=== PATIENT | male | born 1980 | race Caucasian/White ===

== ENCOUNTER 2018-11-24 14:27 | Emergency (ER) | payer OTHER ==
[~2018-11-24] VITALS: Ht 187.9 cm; Wt 113.4 kg
[2018-11-24] MEDS ORDERED: BENADRYL ALLERG25 M5 PO (14:52)
[2018-11-24] MEDS ORDERED: DELTASONE20 M1 PO (14:52)
[2018-11-24] MEDS ORDERED: EPIPEN 2-P0.3 MG/0.3 IJ (14:59)
== END 2018-11-24 15:34 | disposition home or self-care (01) ==
LOC: ED 14:27
DX: T63.441A Toxic effect of venom of bees, accidental (unintentional), initial encounter (principal); M79.89 Other specified soft tissue disorders; Z88.1 Allergy status to other antibiotic agents; Y92.89 Other specified places as the place of occurrence of the external cause

== ENCOUNTER 2019-07-01 17:47 | Emergency (ER) | payer OTHER ==
[~2019-07-01] VITALS: Ht 187.9 cm; Wt 107.0 kg
[~2019-07-01 17:47] MED LIST: BENADRYL ALLERG25 M5 PO; DELTASONE20 M1 PO; EPIPEN 2-P0.3 MG/0.3 IJ
[2019-07-01 18:39] LABS: BASO % 0.3 % (0.0-1.0); HEMATOCRIT 40.2 % (42.0-52.0); HEMOGLOBIN 14.2 g/dl (14.0-18.0); LYMPH # 1.2 10*3/uL (1.3-4.4); LYMPH % 30.7 % (27.0-41.0); MEAN CELL VOLUME 99.3 fl (80.0-94.0); MEAN CORPUSCULAR HGB 35.1 pg (27.0-31.0); MEAN CORPUSCULAR HGB CONC 35.3 g/dl (33.0-37.0); MEAN PLATELET VOLUME 10.9 fl (9.6-12.3); MONO # 0.3 10*3/uL (0.1-1.0); MONO % 8.8 % (3.0-9.0); NEUT # 2.3 10*3/uL (2.3-7.9); NEUT % 58.9 % (47.0-73.0); PLATELET COUNT AUTOMATED 72 10*3/uL (130-400); RED BLOOD COUNT 4.05 10*6/uL (4.50-5.90); RED CELL DISTRI WIDTH 12.8 % (0-14.5); WHITE BLOOD COUNT 3.9 10*3/uL (4.8-10.8)
[2019-07-01 18:52] LABS: ALBUMIN 3.6 gm/dl (3.1-4.5); ALKALINE PHOSPHATASE 69 U/L (45-117); BUN 7 mg/dl (7-24); CHLORIDE 105 mmol/L (98-107); CREATININE 0.89 mg/dL (0.70-1.30); LIPASE 74 U/L (73-393); POTASSIUM 3.3 mmol/L (3.5-5.1); SGOT/AST 18 IU/L (3-35); SGPT/ALT 26 U/L (12-78); SODIUM 138 mmol/L (136-145); TOTAL PROTEIN 7.6 gm/dL (6.4-8.2); TROPONIN I < 0.015 ng/ml (<0.045)
[2019-07-01 18:53] LABS: ACT PARTIAL THROMBO TIME 41.9 SECONDS (20.0-32.1)
== END 2019-07-01 20:55 | disposition short-term general hospital (02) ==
LOC: ED 17:47
PROVIDERS: Emergency Medicine
DX: I63.9 Cerebral infarction, unspecified (principal); F17.200 Nicotine dependence, unspecified, uncomplicated; Z88.1 Allergy status to other antibiotic agents; Z79.899 Other long term (current) drug therapy

== ENCOUNTER 2019-08-27 22:25 | Emergency (ER) | payer OTHER ==
[~2019-08-27] VITALS: Ht 182.8 cm; Wt 108.9 kg
[2019-08-27 22:55] LABS: HEMATOCRIT 49.8 % (42.0-52.0); MEAN CELL VOLUME 107.6 fl (80.0-94.0); MEAN CORPUSCULAR HGB 34.8 pg (27.0-31.0); MEAN CORPUSCULAR HGB CONC 32.3 g/dl (33.0-37.0); MEAN PLATELET VOLUME 10.5 fl (9.6-12.3); PLATELET COUNT AUTOMATED 151 10*3/uL (130-400); RED BLOOD COUNT 4.63 10*6/uL (4.50-5.90); RED CELL DISTRI WIDTH 13.5 % (0-14.5); WHITE BLOOD COUNT 15.1 10*3/uL (4.8-10.8)
[2019-08-27 23:14] LABS: ALBUMIN 4.5 gm/dl (3.1-4.5); ALKALINE PHOSPHATASE 96 U/L (45-117); BUN 12 mg/dl (7-24); CHLORIDE 105 mmol/L (98-107); CKMB < 1.0 ng/ml (0.5-3.6); CREATININE 1.42 mg/dL (0.70-1.30); ETHYL ALCOHOL < 3.0 mg/dl (<3); POTASSIUM 3.6 mmol/L (3.5-5.1); SGOT/AST 40 IU/L (3-35); SGPT/ALT 47 U/L (12-78); SODIUM 140 mmol/L (136-145); TOTAL PROTEIN 9.3 gm/dL (6.4-8.2); TROPONIN I 0.043 ng/ml (<0.045)
[2019-08-27 23:19] LABS: PLATELET SUFFICIENCY NORMAL (NORMAL); TOTAL CELLS COUNTED 100 #CELLS
[2019-08-27 23:40] LABS: URINE AMPHETAMINES < 1000 (1000ng/ml); URINE BARBITURATES < 200 (200ng/ml); URINE BENZODIAZEPINES > 200 (200ng/ml); URINE CANNABINOIDS (THC) < 50 (50ng/ml); URINE COCAINE < 300 (300ng/ml); URINE METHADONE < 300 (300ng/ml); URINE OPIATES < 300 (300ng/ml)
[2019-08-27 23:43] LABS: URINE PHENCYCLIDINE < 25 (25ng/ml)
[2019-08-27 23:45] LABS: BILIRUBIN NEGATIVE (NEGATIVE); BLOOD 3+ (NEGATIVE); CLARITY CLEAR (CLEAR); COLOR YELLOW (YELLOW); GLUCOSE NEGATIVE (NEGATIVE); KETONE NEGATIVE (NEGATIVE); LEUKO ESTERASE NEGATIVE (NEGATIVE); NITRITE NEGATIVE (NEGATIVE); UROBILINOGEN 0.2 E.U./dl (0.2-1.0)
[2019-08-27 23:46] LABS: BACTERIA TRACE
== END 2019-08-28 02:17 | disposition short-term general hospital (02) ==
LOC: ED 22:25
PROVIDERS: Family Medicine
DX: G40.801 Other epilepsy, not intractable, with status epilepticus (principal); F17.200 Nicotine dependence, unspecified, uncomplicated; Z88.8 Allergy status to other drugs, medicaments and biological substances; Z79.899 Other long term (current) drug therapy

== ENCOUNTER 2021-09-19 15:47 | Inpatient (IN) | payer OTHER ==
[2021-09-19] VITALS (8 sets, daily range): BP systolic 145–178; BP diastolic 104–126
[~2021-09-19] VITALS: Ht 188 cm; Wt 93.0 kg
[2021-09-19 16:26] LABS: BASO % 0.2 % (0.0-1.0); EOS # 0.1 10*3/uL (0.0-0.4); HEMATOCRIT 38.4 % (42.0-52.0); LYMPH % 16.3 % (27.0-41.0); MEAN CELL VOLUME 92.8 fl (80.0-94.0); MEAN CORPUSCULAR HGB 33.1 pg (27.0-31.0); MEAN CORPUSCULAR HGB CONC 35.7 g/dl (33.0-37.0); MEAN PLATELET VOLUME 10.9 fl (9.6-12.3); MONO # 0.3 10*3/uL (0.1-1.0); MONO % 4.9 % (3.0-9.0); NEUT # 4.7 10*3/uL (2.3-7.9); NEUT % 77.3 % (47.0-73.0); PLATELET COUNT AUTOMATED 66 10*3/uL (130-400); RED BLOOD COUNT 4.14 10*6/uL (4.50-5.90); RED CELL DISTRI WIDTH 13.3 % (0-14.5); WHITE BLOOD COUNT 6.1 10*3/uL (4.8-10.8)
[2021-09-19 16:39] LABS: ALKALINE PHOSPHATASE 69 U/L (45-117); BUN 21 mg/dl (7-24); CHLORIDE 106 mmol/L (98-107); CREATININE 1.02 mg/dL (0.70-1.30); POTASSIUM 3.8 mmol/L (3.5-5.1); SGOT/AST 15 IU/L (3-35); SGPT/ALT 23 U/L (12-78); SODIUM 137 mmol/L (136-145); TOTAL PROTEIN 7.4 gm/dL (6.4-8.2)
[2021-09-19 19:04] LABS: BILIRUBIN Negative (Negative); BLOOD Negative (Negative); CLARITY Clear (Clear); COLOR Dark Yellow (Yellow); GLUCOSE Negative (Negative); KETONE Trace (Negative); LEUKO ESTERASE Trace (Negative); NITRITE Negative (Negative); SPECIFIC GRAVITY 1.025 (1.001-1.030)
[2021-09-19 19:18] LABS: BACTERIA TRACE
[2021-09-19] MEDS ORDERED: ASPIRIN ADULT L81 M2 PO (22:31)
[2021-09-19] MEDS ORDERED: LIPITOR80 MG PO (22:32)
[2021-09-19] MEDS ORDERED: FLUOXETINE40 MG PO (22:33)
[2021-09-19] MEDS ORDERED: ELIQUIS5 M1 PO (22:33)
[2021-09-19] MEDS ORDERED: NATURE'S BLEND F1 MG PO (22:34)
[2021-09-19] MEDS ORDERED: GABAPENTIN100 M2 PO (22:35)
[2021-09-19] MEDS ORDERED: APRESOLINE25 MG PO (22:35)
[2021-09-19] MEDS ORDERED: KEPPRA500 MG PO (22:36)
[2021-09-19] MEDS ORDERED: ZESTRIL20 MG PO (22:37)
[2021-09-19] MEDS ORDERED: MULTIPLE VITAM1 EAC2 PO (22:38)
[2021-09-19] MEDS ORDERED: NIFEDIPINE ER60 M1 PO (22:38)
[2021-09-20] VITALS: BP 153/87
[2021-09-20 05:32] LABS: BUN 18 mg/dl (7-24); CHLORIDE 106 mmol/L (98-107); CHOLESTEROL 144 mg/dL (<200); CREATININE 0.91 mg/dL (0.70-1.30); POTASSIUM 3.8 mmol/L (3.5-5.1); SGOT/AST 14 IU/L (3-35); SGPT/ALT 21 U/L (12-78); SODIUM 138 mmol/L (136-145); TRIGLYCERIDES 159 mg/dl (<150)
[2021-09-20 05:33] LABS: ALKALINE PHOSPHATASE 63 U/L (45-117); CPK 30 U/L (39-308); LDL CHOLESTEROL 83 mg/dL (9-159); TOTAL PROTEIN 6.8 gm/dL (6.4-8.2)
[2021-09-20 05:45] LABS: FREE T4 0.78 ng/dl (0.76-1.46)
[2021-09-20 06:09] LABS: HEMATOCRIT 36.1 % (42.0-52.0); MEAN CORPUSCULAR HGB 32.9 pg (27.0-31.0); MEAN CORPUSCULAR HGB CONC 34.6 g/dl (33.0-37.0); PLATELET COUNT AUTOMATED 69 10*3/uL (130-400); RED CELL DISTRI WIDTH 13.6 % (0-14.5); WHITE BLOOD COUNT 3.9 10*3/uL (4.8-10.8)
[2021-09-20 06:15] LABS: ACT PARTIAL THROMBO TIME 39.5 SECONDS (20.0-32.1)
[2021-09-20 06:19] LABS: MANUAL DIFF REFLEX YES
[2021-09-20 06:56] LABS: PLATELET SUFFICIENCY NORMAL (NORMAL); TOTAL CELLS COUNTED 100 #CELLS
[2021-09-20 08:00] VITALS: BP 134/72
[2021-09-20 12:00] VITALS: BP 125/77
[2021-09-20 16:00] VITALS: BP 122/70
[2021-09-20 20:00] VITALS: BP 123/82
[2021-09-21] VITALS: BP 136/88
[2021-09-21 05:13] LABS: BUN 22 mg/dl (7-24); CHLORIDE 106 mmol/L (98-107); POTASSIUM 4.1 mmol/L (3.5-5.1); SODIUM 137 mmol/L (136-145)
[2021-09-21 06:13] LABS: BASO % 0.6 % (0.0-1.0); EOS # 0.1 10*3/uL (0.0-0.4); EOS % 2.4 % (1.0-4.0); HEMATOCRIT 37.1 % (42.0-52.0); LYMPH # 1.7 10*3/uL (1.3-4.4); LYMPH % 35.5 % (27.0-41.0); MEAN CELL VOLUME 96.1 fl (80.0-94.0); MEAN CORPUSCULAR HGB 33.7 pg (27.0-31.0); MEAN PLATELET VOLUME 10.8 fl (9.6-12.3); MONO # 0.2 10*3/uL (0.1-1.0); MONO % 4.9 % (3.0-9.0); NEUT # 2.6 10*3/uL (2.3-7.9); NEUT % 56.4 % (47.0-73.0); PLATELET COUNT AUTOMATED 87 10*3/uL (130-400); RED BLOOD COUNT 3.86 10*6/uL (4.50-5.90); RED CELL DISTRI WIDTH 13.5 % (0-14.5); WHITE BLOOD COUNT 4.7 10*3/uL (4.8-10.8)
[2021-09-21 08:00] VITALS: BP 133/90
[2021-09-21 12:00] VITALS: BP 128/83
[2021-09-21 16:00] VITALS: BP 103/54; BP 162/86
[2021-09-21 20:00] VITALS: BP 101/60
[2021-09-22] VITALS: BP 93/52
[2021-09-22 05:06] LABS: BUN 27 mg/dl (7-24); CHLORIDE 108 mmol/L (98-107); CREATININE 1.09 mg/dL (0.70-1.30); POTASSIUM 3.6 mmol/L (3.5-5.1); SODIUM 138 mmol/L (136-145)
[2021-09-22 05:18] VITALS: BP 94/65
[2021-09-22 06:26] LABS: BASO % 0.6 % (0.0-1.0); EOS # 0.1 10*3/uL (0.0-0.4); EOS % 1.8 % (1.0-4.0); HEMATOCRIT 36.6 % (42.0-52.0); LYMPH # 1.6 10*3/uL (1.3-4.4); MEAN CELL VOLUME 95.1 fl (80.0-94.0); MEAN CORPUSCULAR HGB 33.2 pg (27.0-31.0); MEAN PLATELET VOLUME 11.1 fl (9.6-12.3); MONO # 0.3 10*3/uL (0.1-1.0); MONO % 5.3 % (3.0-9.0); NEUT % 60.1 % (47.0-73.0); PLATELET COUNT AUTOMATED 92 10*3/uL (130-400); RED BLOOD COUNT 3.85 10*6/uL (4.50-5.90); RED CELL DISTRI WIDTH 13.4 % (0-14.5); WHITE BLOOD COUNT 5.1 10*3/uL (4.8-10.8)
[2021-09-22 08:00] VITALS: BP 125/83
[2021-09-22 12:00] VITALS: BP 92/57
[2021-09-22] MEDS ORDERED: ASPIRIN ADULT L81 M2 PO (14:35)
[2021-09-22] MEDS ORDERED: ZESTRIL20 MG PO (14:35)
[2021-09-22] MEDS ORDERED: ELIQUIS5 M1 PO (14:35)
[2021-09-22] MEDS ORDERED: APRESOLINE25 MG PO (14:35)
[2021-09-22] MEDS ORDERED: NIFEDIPINE ER60 M1 PO (14:35)
[2021-09-22 16:00] VITALS: BP 125/83
[2021-09-22] MEDS ORDERED: B12 ACTIVE1000 MCG PO (16:58)
== END 2021-09-22 18:54 | disposition home or self-care (01) | DRG 45 ==
LOC: ED 15:47 → EDHOLD 17:22 → 4E 17:22
PROVIDERS: Internal Medicine; Student in an Organized Health Care Education/Training Program; ADMIT Family Medicine; ATTEND Family Medicine
DX: I63.50 Cerebral infarction due to unspecified occlusion or stenosis of unspecified cerebral artery (principal); D64.9 Anemia, unspecified; R73.9 Hyperglycemia, unspecified; E53.8 Deficiency of other specified B group vitamins; F17.220 Nicotine dependence, chewing tobacco, uncomplicated; I10 Essential (primary) hypertension; Z86.69 Personal history of other diseases of the nervous system and sense organs; Z88.1 Allergy status to other antibiotic agents; Z79.82 Long term (current) use of aspirin; Z79.899 Other long term (current) drug therapy; Z82.49 Family history of ischemic heart disease and other diseases of the circulatory system; Z83.3 Family history of diabetes mellitus

== ENCOUNTER → 2021-10-30 | Outpatient (CLI) | payer OTHER ==
[~2021-10-30] MED LIST changes: +APRESOLINE25 MG PO; +ASPIRIN ADULT L81 M2 PO; +B12 ACTIVE1000 MCG PO; +ELIQUIS5 M1 PO; +FLUOXETINE40 MG PO; +GABAPENTIN100 M2 PO; +KEPPRA500 MG PO; +LIPITOR80 MG PO; +MULTIPLE VITAM1 EAC2 PO; +NATURE'S BLEND F1 MG PO; +NIFEDIPINE ER60 M1 PO; +ZESTRIL20 MG PO
[2021-10-30 12:23] LABS: HEMATOCRIT 35.3 % (42.0-52.0); MEAN CELL VOLUME 95.7 fl (80.0-94.0); MEAN CORPUSCULAR HGB 33.1 pg (27.0-31.0); MEAN CORPUSCULAR HGB CONC 34.6 g/dl (33.0-37.0); MEAN PLATELET VOLUME 9.8 fl (9.6-12.3); RED BLOOD COUNT 3.69 10*6/uL (4.50-5.90); RED CELL DISTRI WIDTH 13.6 % (0-14.5); WHITE BLOOD COUNT 4.3 10*3/uL (4.8-10.8)
[2021-10-30 12:39] LABS: ALKALINE PHOSPHATASE 57 U/L (45-117); BUN 10 mg/dl (7-24); CHLORIDE 113 mmol/L (98-107); CHOLESTEROL 108 mg/dL (<200); CREATININE 1.15 mg/dL (0.70-1.30); LDL CHOLESTEROL 51 mg/dL (9-159); POTASSIUM 3.6 mmol/L (3.5-5.1); SGOT/AST 15 IU/L (3-35); SGPT/ALT 15 U/L (12-78); SODIUM 144 mmol/L (136-145); TRIGLYCERIDES 110 mg/dl (<150)
[2021-10-30 12:59] LABS: FREE T4 0.65 ng/dl (0.76-1.46)
== END | disposition home or self-care (01) ==
LOC: LAB 11:58
PROVIDERS: ATTEND Family Medicine
DX: I63.9 Cerebral infarction, unspecified (principal); R53.83 Other fatigue; D53.9 Nutritional anemia, unspecified; R56.9 Unspecified convulsions

== ENCOUNTER → 2022-06-17 | Outpatient (CLI) | payer OTHER | END | disposition home or self-care (01) | LOC: CT 14:56 | PROVIDERS: ATTEND Family Medicine | DX: G93.89 Other specified disorders of brain (principal); R41.82 Altered mental status, unspecified; I63.9 Cerebral infarction, unspecified; Z79.899 Other long term (current) drug therapy ==

== ENCOUNTER → 2023-08-11 | Outpatient (CLI) | payer OTHER ==
[~2023-08-11] MED LIST changes: +Synthroid,Levo25 MCG PO
[2023-08-11 16:15] LABS: BASO % 0.6 % (0.0-1.0); EOS # 0.2 10*3/uL (0.0-0.4); EOS % 3.6 % (1.0-4.0); HEMATOCRIT 41.9 % (42.0-52.0); LYMPH # 1.1 10*3/uL (1.3-4.4); LYMPH % 22.6 % (27.0-41.0); MEAN CELL VOLUME 101.2 fl (80.0-94.0); MEAN CORPUSCULAR HGB 34.1 pg (27.0-31.0); MEAN CORPUSCULAR HGB CONC 33.7 g/dl (33.0-37.0); MEAN PLATELET VOLUME 9.6 fl (9.6-12.3); MONO # 0.2 10*3/uL (0.1-1.0); MONO % 3.8 % (3.0-9.0); NEUT # 3.2 10*3/uL (2.3-7.9); NEUT % 69.2 % (47.0-73.0); PLATELET COUNT AUTOMATED 107 10*3/uL (130-400); RED BLOOD COUNT 4.14 10*6/uL (4.50-5.90); RED CELL DISTRI WIDTH 12.3 % (0-14.5); WHITE BLOOD COUNT 4.7 10*3/uL (4.8-10.8)
[2023-08-11 16:35] LABS: ALKALINE PHOSPHATASE 87 U/L (46-116); BUN 14 mg/dl (9-23); CHLORIDE 103 mmol/L (98-107); FREE T4 0.75 ng/dl (0.89-1.76); POTASSIUM 3.7 mmol/L (3.4-5.1); SGPT/ALT 20 U/L (5-49); TOTAL PROTEIN 7.3 gm/dL (6.0-8.0)
== END | disposition home or self-care (01) ==
LOC: LAB 15:53
PROVIDERS: Family Medicine; ATTEND Family Medicine
DX: E53.8 Deficiency of other specified B group vitamins (principal); E03.9 Hypothyroidism, unspecified; D53.9 Nutritional anemia, unspecified; E83.51 Hypocalcemia

== ENCOUNTER → 2024-01-04 | Outpatient (CLI) | payer OTHER ==
[2024-01-04 12:26] LABS: BASO % 0.4 % (0.0-1.0); EOS # 0.2 10*3/uL (0.0-0.4); EOS % 3.7 % (1.0-4.0); LYMPH # 1.3 10*3/uL (1.3-4.4); MEAN CORPUSCULAR HGB 34.1 pg (27.0-31.0); MEAN CORPUSCULAR HGB CONC 33.8 g/dl (33.0-37.0); MEAN PLATELET VOLUME 9.4 fl (9.6-12.3); MONO # 0.2 10*3/uL (0.1-1.0); MONO % 4.3 % (3.0-9.0); NEUT % 64.4 % (47.0-73.0); PLATELET COUNT AUTOMATED 114 10*3/uL (130-400); RED BLOOD COUNT 3.96 10*6/uL (4.50-5.90); RED CELL DISTRI WIDTH 13.3 % (0-14.5); WHITE BLOOD COUNT 4.6 10*3/uL (4.8-10.8)
[2024-01-04 13:11] LABS: ALKALINE PHOSPHATASE 92 U/L (46-116); BUN 9 mg/dl (9-23); CHLORIDE 103 mmol/L (98-107); POTASSIUM 3.7 mmol/L (3.4-5.1); SGPT/ALT 24 U/L (5-49); TOTAL PROTEIN 6.9 gm/dL (6.0-8.0)
== END | disposition home or self-care (01) ==
LOC: LAB 12:10
PROVIDERS: Psychiatry & Neurology Neurology; ATTEND Family Medicine
DX: I63.9 Cerebral infarction, unspecified (principal)

== ENCOUNTER → 2024-10-16 | Outpatient (CLI) | payer MEDICARE, MEDICAID ==
[2024-10-16 14:35] LABS: HEMATOCRIT 41.2 % (42.0-52.0); MEAN CELL VOLUME 94.5 fl (80.0-94.0); MEAN CORPUSCULAR HGB 32.6 pg (27.0-31.0); MEAN CORPUSCULAR HGB CONC 34.5 g/dl (33.0-37.0); MEAN PLATELET VOLUME 10.2 fl (9.6-12.3); PLATELET COUNT AUTOMATED 134 10*3/uL (130-400); RED BLOOD COUNT 4.36 10*6/uL (4.50-5.90); RED CELL DISTRI WIDTH 12.9 % (0-14.5); WHITE BLOOD COUNT 8.7 10*3/uL (4.8-10.8)
[2024-10-16 14:57] LABS: MANUAL DIFF REFLEX YES
[2024-10-16 15:11] LABS: TOTAL CELLS COUNTED 100 #CELLS
[2024-10-16 15:18] LABS: PLATELET SUFFICIENCY NORMAL (NORMAL)
[2024-10-16 15:20] LABS: ALKALINE PHOSPHATASE 100 U/L (46-116); BUN 15 mg/dl (9-23); CHLORIDE 104 mmol/L (98-107); POTASSIUM 3.5 mmol/L (3.4-5.1); SGPT/ALT 21 U/L (5-49)
[2024-10-16 15:21] LABS: BURR CELLS FEW; OVALOCYTES FEW
== END | disposition home or self-care (01) ==
LOC: LAB 14:09
PROVIDERS: ATTEND Family Medicine
DX: E03.9 Hypothyroidism, unspecified (principal); G40.909 Epilepsy, unspecified, not intractable, without status epilepticus